=== PATIENT | female | born 1945 | race Caucasian/White ===

== ENCOUNTER → 2024-03-21 15:29 | Outpatient (REF) | payer MEDICARE, SELFPAY | LOC: WDC 15:29 | PROVIDERS: ATTENDING PHYSICIAN Internal Medicine | DX: Z12.31 Encounter for screening mammogram for malignant neoplasm of breast (principal) | CPT/HCPCS: 77063; 77067 ==

== ENCOUNTER → 2025-03-22 14:40 | Outpatient (REF) | payer MEDICARE, SELFPAY | LOC: WDC 14:40 | PROVIDERS: ATTENDING PHYSICIAN Internal Medicine | DX: Z12.31 Encounter for screening mammogram for malignant neoplasm of breast (principal); Z78.0 Asymptomatic menopausal state | CPT/HCPCS: 77063; 77067; 77080 ==

== ENCOUNTER → 2025-06-15 15:25 | Outpatient (REF) | payer MEDICARE, SELFPAY | LOC: RAD 15:25 | PROVIDERS: ATTENDING PHYSICIAN Nurse Practitioner Family | DX: R06.89 Other abnormalities of breathing (principal) | CPT/HCPCS: 71046 ==